=== PATIENT | male | born 1935 | race Caucasian/White ===

== ENCOUNTER 2017-04-26 12:42 | Day surgery (SDC) | payer OTHER ==
[~2017-04-26] VITALS: Ht 182.9 cm; Wt 109.8 kg
[~2017-04-26 12:42] MED LIST: ACCUPRIL; AMLO10 PO; AMLO5; AMLO5 PO; BENZ100A PO; EQL CALCIUM; EZET10; FENO145; GLIM2; HCTZ; HYDACE5 PO; HYDCHL12.5; HYDCHL25 PO; METO100ER; NAPR375 PO; NAPR500 PO; NORVASC; OSEL75CA PO; POTA10T; Pravachol20 MG; QUIN10 PO; SITA100T2; SPIHYD; Stool Soft50 MG/5 ML; WARF1; [UNRECOGNIZED DRUG - OTHER]
== END 2017-04-26 15:06 | disposition home or self-care (01) ==
LOC: ORSCSDS 12:42
PROVIDERS: Internal Medicine Gastroenterology
PROC: 0DBN8ZX Excision of Sigmoid Colon, Via Natural or Artificial Opening Endoscopic, Diagnostic (ICD-10-PCS; principal; 2017-04-26 13:45)
PROC: 0DBK8ZX Excision of Ascending Colon, Via Natural or Artificial Opening Endoscopic, Diagnostic (ICD-10-PCS; principal; 2017-04-26 13:45)
PROC: 0DBM8ZX Excision of Descending Colon, Via Natural or Artificial Opening Endoscopic, Diagnostic (ICD-10-PCS; principal; 2017-04-26 13:45)
DX: Z12.11 Encounter for screening for malignant neoplasm of colon (principal); Z86.010 Personal history of colon polyps; D12.2 Benign neoplasm of ascending colon; D12.4 Benign neoplasm of descending colon; K63.5 Polyp of colon; K57.30 Diverticulosis of large intestine without perforation or abscess without bleeding; E11.9 Type 2 diabetes mellitus without complications; I48.91 Unspecified atrial fibrillation; G47.33 Obstructive sleep apnea (adult) (pediatric); Z87.891 Personal history of nicotine dependence; Z79.01 Long term (current) use of anticoagulants; Z79.899 Other long term (current) drug therapy
CPT/HCPCS: 82947; 88305; J7120

== ENCOUNTER → 2017-06-27 | Outpatient (CLI) | payer OTHER | LOC: LAB SHORT 10:28 → PLD 10:28 | DX: D18.01 Hemangioma of skin and subcutaneous tissue (principal) | CPT/HCPCS: 88305 ==

== ENCOUNTER → 2019-12-30 | Outpatient (CLI) | payer OTHER | END | disposition home or self-care (01) | LOC: PLD 10:57 → LAB SHORT 10:57 | DX: D48.5 Neoplasm of uncertain behavior of skin (principal) | CPT/HCPCS: 88305 ==

== ENCOUNTER → 2020-02-19 | Outpatient (CLI) | payer OTHER | END | disposition home or self-care (01) | LOC: LAB SHORT 15:43 → PLD 15:43 | DX: L82.1 Other seborrheic keratosis (principal); L28.2 Other prurigo | CPT/HCPCS: 88305 ==

== ENCOUNTER → 2022-10-31 | Outpatient (CLI) | payer OTHER ==
[2022-10-31 15:14] LABS: BASOPHILS ABSOLUTE AUTO 0.07 K/mm3 (0.00-0.23); BASOPHILS PERCENT AUTO 1 % (0-2); EOSINOPHILS ABSOLUTE AUTO 0.21 K/mm3 (0.00-0.68); EOSINOPHILS PERCENT AUTO 3 % (0-6); Hematocrit 51.1 % (37.0-53.0); Hemoglobin 17.3 g/dL (13.5-17.5); IMMATURE GRAN ABSOLUTE AUTO 0.04 K/mm3 (0.00-0.10); IMMATURE GRAN PERCENT AUTO 1 % (0-1); LYMPHOCYTES ABSOLUTE AUTO 2.25 K/mm3 (0.84-5.20); LYMPHOCYTES PERCENT AUTO 26 % (21-46); MONOCYTES ABSOLUTE AUTO 0.72 K/mm3 (0.16-1.47); MONOCYTES PERCENT AUTO 8 % (4-13); Mean Corpuscular HGB 29.8 pg (26.0-34.0); Mean Corpuscular HGB Conc 33.9 g/dL (31.5-36.5); Mean Corpuscular Volume 88 fL (80-100); Mean Platelet Volume 12.4 fL (9.1-12.4); NEUTROPHILS ABSOLUTE AUTO 5.27 K/mm3 (1.96-9.15); NEUTROPHILS PERCENT AUTO 62 % (41-73); Platelet Count 144 K/mm3 (150-400); RDW Coefficient Variation 13.7 % (11.7-14.2); RDW Standard Deviation 43.8 fL (35.1-46.3); Red Blood Cell Count 5.81 M/mm3 (4.30-5.90); White Blood Cell Count 8.56 K/mm3 (4.00-11.30)
[2022-10-31 16:07] LABS: International Normalized Ratio 2.63; Prothrombin Time Results 26.1 Sec (9.7-11.5)
[2022-11-01 06:16] LABS: HEMOGLOBIN A1C 8.6 % (4.8-5.6)
== END ==
LOC: LAB 12:00 → LAB SHORT 12:00
PROVIDERS: Internal Medicine
DX: I12.9 Hypertensive chronic kidney disease with stage 1 through stage 4 chronic kidney disease, or unspecified chronic kidney disease (principal); E11.22 Type 2 diabetes mellitus with diabetic chronic kidney disease; N18.9 Chronic kidney disease, unspecified; I48.91 Unspecified atrial fibrillation
CPT/HCPCS: 83036; 83970; 85025; 85610

== ENCOUNTER → 2022-11-21 | Outpatient (CLI) | payer OTHER | LOC: LAB 13:55 | DX: I12.9 Hypertensive chronic kidney disease with stage 1 through stage 4 chronic kidney disease, or unspecified chronic kidney disease (principal); N18.9 Chronic kidney disease, unspecified; I48.91 Unspecified atrial fibrillation ==

== ENCOUNTER → 2022-12-21 | Outpatient (CLI) | payer OTHER ==
[2022-12-21 13:07] LABS: International Normalized Ratio 1.86; Prothrombin Time Results 18.9 Sec (9.7-11.5)
== END ==
LOC: LAB 11:39 → LAB SHORT 11:39
PROVIDERS: Internal Medicine
DX: I48.91 Unspecified atrial fibrillation (principal); D68.69 Other thrombophilia
CPT/HCPCS: 85610

== ENCOUNTER → 2023-12-02 | Outpatient (CLI) | payer OTHER ==
[2023-12-02 11:05] LABS: International Normalized Ratio 3.15
== END | disposition home or self-care (01) ==
LOC: LAB SHORT 10:41 → LAB 10:41
PROVIDERS: Internal Medicine
DX: I48.20 Chronic atrial fibrillation, unspecified (principal); D68.69 Other thrombophilia
CPT/HCPCS: 85610

== ENCOUNTER 2024-06-04 09:28 | Inpatient (IN) | payer OTHER ==
[~2024-06-04] VITALS: Ht 182.9 cm; Wt 110.0 kg
[~2024-06-04 09:28] MED LIST changes: -METO100ER; +METO100ER PO; -WARF1; +WARF5 PO
[2024-06-04] MEDS ORDERED: TRADJENTA5 MG PO ×2 (09:47→17:18)
[2024-06-04] MEDS ORDERED: AMLODIPINE BESYL5 MG PO (09:47)
[2024-06-04] MEDS ORDERED: DONEPEZIL HCL5 M2 PO (09:47)
[2024-06-04] MEDS ORDERED: Potassium Chlo20 ME1 PO (09:48)
[2024-06-04] MEDS ORDERED: TELMISARTAN80 MG PO (09:48)
[2024-06-04] MEDS ORDERED: ATORVASTATIN CA20 MG PO (09:48)
[2024-06-04 10:05] LABS: White Blood Cell Count 10.46 K/mm3 (4.00-11.30)
[2024-06-04 10:06] LABS: BASOPHILS ABSOLUTE AUTO 0.02 K/mm3 (0.00-0.23); BASOPHILS PERCENT AUTO 0 % (0-2); EOSINOPHILS PERCENT AUTO 0 % (0-6); Hematocrit 44.7 % (37.0-53.0); Hemoglobin 15.1 g/dL (13.5-17.5); IMMATURE GRAN ABSOLUTE AUTO 0.05 K/mm3 (0.00-0.10); IMMATURE GRAN PERCENT AUTO 1 % (0-1); LYMPHOCYTES ABSOLUTE AUTO 1.03 K/mm3 (0.84-5.20); LYMPHOCYTES PERCENT AUTO 10 % (21-46); MONOCYTES ABSOLUTE AUTO 1.14 K/mm3 (0.16-1.47); MONOCYTES PERCENT AUTO 11 % (4-13); Mean Corpuscular HGB 29.5 pg (26.0-34.0); Mean Corpuscular HGB Conc 33.8 g/dL (31.5-36.5); Mean Corpuscular Volume 88 fL (80-100); Mean Platelet Volume 11.9 fL (9.1-12.4); NEUTROPHILS ABSOLUTE AUTO 8.22 K/mm3 (1.96-9.15); NEUTROPHILS PERCENT AUTO 79 % (41-73); Platelet Count 125 K/mm3 (150-400); RDW Coefficient Variation 14.1 % (11.7-14.2); RDW Standard Deviation 45.3 fL (35.1-46.3); Red Blood Cell Count 5.11 M/mm3 (4.30-5.90)
[2024-06-04 11:10] LABS: International Normalized Ratio 1.69; Prothrombin Time Results 17.4 Sec (9.7-11.5)
[2024-06-04 11:25] LABS: CORONAVIRUS COVID-19 AG Negative (NEGATIVE); INFLUENZA A AG Negative (NEGATIVE); INFLUENZA B AG Negative (NEGATIVE)
[2024-06-04 11:33] LABS: Albumin, Blood 2.8 g/dL (3.4-5.0); Albumin/Globulin Ratio 0.7 (0.8-1.8); Bilirubin, Total 1.4 mg/dL (0.1-1.0); Calcium, Blood 8.8 mg/dL (8.5-10.1); Creatinine, Blood 1.05 mg/dL (0.60-1.20); Globulin, Blood 4.3 g/dL (2.2-4.0); Potassium, Blood 3.7 mmol/L (3.5-5.5); Total Protein, Blood 7.1 g/dL (6.4-8.2)
[2024-06-04] MEDS ORDERED: Ipratropium/Albuterol SulF 2.5-0.5MG/3 ML Amp INH ONE ×2 (11:40→22:00)
[2024-06-04] MEDS ORDERED: MethylPREDNISolone Sod Succ 125 MG Vial IV ONE (13:55)
[2024-06-04] MEDS ORDERED: CefTRIAXone Sodium 1,000 MG in NS 100 ML IV ONE (15:50)
[2024-06-04 15:57] LABS: Base Excess Venous 1.4 mmol/L; Bicarbonate Venous 25.7 mmol/L (24.0-30.0); PCO2 Venous 38.1 mmHg (38-42); pH Blood Venous 7.44 (7.34-7.37)
[2024-06-04] MEDS ORDERED: Azithromycin 500 MG in NS 250 ML IV ONE (16:10)
[2024-06-04] MEDS ORDERED: FLU VACC TS2024-25(6MOS UP)/PF 45 MCG/0.5 ML SYRINGE IM SCH (16:25)
[2024-06-04] MEDS ORDERED: NS 1,000 ML IV SCH ×2 (16:50→21:45)
[2024-06-04] MEDS ORDERED: WARF4 PO (17:16)
[2024-06-04] MEDS ORDERED: METF500 PO (17:18)
[2024-06-04 17:57] VITALS: BP 153/92
[2024-06-04] MEDS ORDERED: Warfarin Sodium 3 MG Tab PO ONE (18:40)
--- NOTE | 2024-06-04 18:54 | NUR ---
Admit/ End of shift note. Pt admitted into PCU2 from the ED this evening. Pt and family were oriented to the room and call light system. Pt has been on 2L nc to keep sats >92%. Pt was able to stand at the bedside to void and change out his clothing. Notable increase in his WOB and some complaints of feelings a little lightheaded. Once back in bed MD contacted to confirm IVF orders. MD told to give 500mL IVF then call back with status update to decide if more fluid is needed. Due to IV site and ABX currently infusing, bolus is taking longer to infuse. Pt has been instructed to keep arm straight to maintain IV infusion. Will pass on to accredited pharmacy technician to update MD. Pt is able to make needs known, call light is within reach. Daughter is currently at bedside.
[2024-06-04 19:44] VITALS: BP 139/84
[2024-06-04] MEDS ORDERED: Insulin Human Lispro 100 Units/ML 3ML Syringe SC SCH (21:00)
[2024-06-04] MEDS ORDERED: GuaiFENesin 600 MG TabCR PO SCH (21:00)
[2024-06-04 23:12] VITALS: BP 153/85
[2024-06-05] MEDS ORDERED: DEXTROMETHORPHAN/BENZOCAINE 1 EACH LOZENGE MT PRN (03:30)
[2024-06-05 03:52] VITALS: BP 149/90
[2024-06-05 04:24] LABS: Hematocrit 44.5 % (37.0-53.0); Hemoglobin 14.8 g/dL (13.5-17.5); Mean Corpuscular HGB 29.5 pg (26.0-34.0); Mean Corpuscular HGB Conc 33.3 g/dL (31.5-36.5); Mean Corpuscular Volume 89 fL (80-100); Mean Platelet Volume 12.1 fL (9.1-12.4); Platelet Count 121 K/mm3 (150-400); RDW Coefficient Variation 14.4 % (11.7-14.2); RDW Standard Deviation 46.4 fL (35.1-46.3); Red Blood Cell Count 5.02 M/mm3 (4.30-5.90); White Blood Cell Count 6.47 K/mm3 (4.00-11.30)
[2024-06-05 04:40] LABS: International Normalized Ratio 1.9; Prothrombin Time Results 19.4 Sec (9.7-11.5)
[2024-06-05 04:46] LABS: Albumin, Blood 2.6 g/dL (3.4-5.0); Albumin/Globulin Ratio 0.6 (0.8-1.8); Bilirubin, Total 0.8 mg/dL (0.1-1.0); Bun/Creatinine Ratio 26.9 (12.0-20.0); Calcium, Blood 9.6 mg/dL (8.5-10.1); Creatinine, Blood 0.93 mg/dL (0.60-1.20); Globulin, Blood 4.5 g/dL (2.2-4.0); Potassium, Blood 3.5 mmol/L (3.5-5.5); Total Protein, Blood 7.1 g/dL (6.4-8.2)
[2024-06-05 05:37] LABS: BAND PERCENT MAN 24 % (0-8); BASOPHILS PERCENT MAN 0 % (0-2); EOSINOPHILS PERCENT MAN 0 % (0-6); LYMPHOCYTES ABSOLUTE MAN 0.32 K/mm3 (0.84-5.20); LYMPHOCYTES PERCENT MAN 5 % (21-46); MONOCYTES ABSOLUTE MAN 0.38 K/mm3 (0.16-1.47); MONOCYTES PERCENT MAN 6 % (4-13); NEUTROPHILS ABSOLUTE MAN 5.75 K/mm3 (1.96-9.15); SEG NEUTROPHILS PERCENT MAN 65 % (41-73); TOTAL CELLS COUNTED 100
--- NOTE | 2024-06-05 06:36 | NUR ---
SHIFT SUMMARY: PT IS A&OX3, FORGETFUL AT TIMES. FREQUENTLY THINKS HE IS AT HOME WHEN HE WAKES UP. VSS ON 3L NC. AFIB in the 100'S. DENIES PAIN. TOLERATING A CONS CARB DIET. PT OPTED NOT TO LET THIS RN ADMINISTER INSULIN. HE STATES HE DOESN'T TAKE INSULIN AT HOME. TAKES PILLS WHOLE, ONE AT A TIME WITH FLUIDS. VOIDING SMALL AMOUNTS OF CONCENTRATED MALODOROUS URINE IN URINAL. NO BM THIS SHIFT. BED IN LOWEST POSITION, CALL LIGHT WITHIN REACH. BED ALARM SET FOR PT'S SAFETY.
[2024-06-05 07:50] VITALS: BP 161/95
[2024-06-05] MEDS ORDERED: Donepezil HCl 5 MG Tab PO SCH (09:00)
[2024-06-05] MEDS ORDERED: Azithromycin 500 MG in NS 250 ML IV SCH (09:00)
[2024-06-05] MEDS ORDERED: CefTRIAXone Sodium 1,000 MG in NS 100 ML IV SCH (09:00)
[2024-06-05] MEDS ORDERED: Metoprolol Succinate 25 MG TABCR PO SCH (09:00)
[2024-06-05] MEDS ORDERED: Atorvastatin 10 MG Tab PO SCH (09:00)
[2024-06-05 09:46] VITALS: BP 146/93
[2024-06-05] MEDS ORDERED: Furosemide 10 MG / ML 2ML Vial IV ONE (10:20)
[2024-06-05 11:52] VITALS: BP 151/104
[2024-06-05 16:10] VITALS: BP 157/93
--- NOTE | 2024-06-05 17:14 | NUR ---
End of shift note. Pt s respiratory status has been struggling this shift. Repeat chest xray was completed this AM. 1 time dose of lasix was given with moderate effect. Pt has required 5L simple mask to maintain sats >92%. Cough continues to be wet but non productive. Respiratory rate high 20s-30s. Pt has overall been very fatigued all shift. He will have periods when he wakes a little bit more and will talk with family and staff. Staff held morning meds but was able to give some meds when he was more alert after lunch. Pt is able to make needs known, call light is within reach. Bed alarm is active.
[2024-06-05] MEDS ORDERED: Warfarin Sodium 3 MG Tab PO SCH (18:00)
--- NOTE | 2024-06-05 18:19 | NUR ---
Bedside report transfer of care at 1730. Pt awakens to conversation, but is lethargic and falls back to sleep readily. Able to follow directions. Tachypneic, very coarse lung sounds throughout and very weak moist cough without being able to expectorate any phlegm. RR 32/min. Requiring 4-5 l/min of O2 at this time. Encouraged him to deep breathe and cough which he did, but he was too sleepy to appreciate education on use of incentive spirometer which I had just given to him. Appears to be very weak. Atrial fibrillation by telemetry noted, rate 98bpm. Daughter at bedside.
--- NOTE | 2024-06-05 18:55 | NUR ---
PT awake encough to take oral medication. Daughter in room states that the pt had a "coughing fit" and she had to raise up the bed. Pt was encouraged not to hold back and to cough as needed.
[2024-06-05 19:49] VITALS: BP 134/79
[2024-06-06] VITALS (9 sets, daily range): BP systolic 130–180; BP diastolic 86–128
--- NOTE | 2024-06-06 02:57 | NUR ---
CARE NOTE RESIDENT GOLF CART MECHANIC NOTIFIED AT 0210 OT PT'S ELEVATED BP OF 180/113(130). STATES THAT SHE WILL PLACE ORDERS.WILL CONTINUE TO MONITOR PT.
[2024-06-06 04:15] LABS: BASOPHILS ABSOLUTE AUTO 0.02 K/mm3 (0.00-0.23); BASOPHILS PERCENT AUTO 0 % (0-2); EOSINOPHILS PERCENT AUTO 0 % (0-6); Hematocrit 46.4 % (37.0-53.0); Hemoglobin 15.3 g/dL (13.5-17.5); IMMATURE GRAN ABSOLUTE AUTO 0.05 K/mm3 (0.00-0.10); IMMATURE GRAN PERCENT AUTO 1 % (0-1); LYMPHOCYTES ABSOLUTE AUTO 1.32 K/mm3 (0.84-5.20); LYMPHOCYTES PERCENT AUTO 18 % (21-46); MONOCYTES ABSOLUTE AUTO 0.86 K/mm3 (0.16-1.47); MONOCYTES PERCENT AUTO 12 % (4-13); Mean Corpuscular HGB 29.9 pg (26.0-34.0); Mean Corpuscular Volume 91 fL (80-100); Mean Platelet Volume 11.8 fL (9.1-12.4); NEUTROPHILS ABSOLUTE AUTO 5.01 K/mm3 (1.96-9.15); NEUTROPHILS PERCENT AUTO 69 % (41-73); Platelet Count 138 K/mm3 (150-400); RDW Coefficient Variation 14.4 % (11.7-14.2); Red Blood Cell Count 5.11 M/mm3 (4.30-5.90); White Blood Cell Count 7.26 K/mm3 (4.00-11.30)
[2024-06-06 04:36] LABS: International Normalized Ratio 2.5
[2024-06-06 04:40] LABS: Albumin, Blood 2.3 g/dL (3.4-5.0); Albumin/Globulin Ratio 0.5 (0.8-1.8); Bilirubin, Total 0.7 mg/dL (0.1-1.0); Bun/Creatinine Ratio 31.8 (12.0-20.0); Creatinine, Blood 0.88 mg/dL (0.60-1.20); Globulin, Blood 4.4 g/dL (2.2-4.0); Total Protein, Blood 6.7 g/dL (6.4-8.2)
--- NOTE | 2024-06-06 07:00 | NUR ---
SHIFT SUMMARY PT HAS BEEN SLEEPING MOST OF THE NIGHT.PT OCCASIONALLY TOOK OF THE OXIMASK AND HIS OXYGEN SATURATION WOULD DROP DOWN TO 86%.PT REMINDED MULTIPLE TIMES TO KEEP THE MASK ON.NO C/O PAIN/DISCOMFORT REPORTED BY PT.PT HAD ELEVATED BP'S NOTED IN PREVIOUS NOTE.WILL PASS REPORT TO DAYSHIFT NURSE.CALL LIGHT AND PT'S ITEMS WITHIN REACH,
--- NOTE | 2024-06-06 07:45 | NUR ---
Pt has been occasionally pulling off his oxygen mask while sleeping. spo2 drops to 86% when on room air, quickly recovers once the oxygen mask is replaced.
[2024-06-06] MEDS ORDERED: AmLODIPine Besylate 5 MG Tab PO SCH (09:00)
[2024-06-06] MEDS ORDERED: HydroCHLOROthiazide 25 mg Tab PO SCH (09:00)
[2024-06-06] MEDS ORDERED: Warfarin Sodium 4 MG Tab PO SCH (18:00)
[2024-06-07 04:13] VITALS: BP 154/97
[2024-06-07 04:26] LABS: BASOPHILS ABSOLUTE AUTO 0.07 K/mm3 (0.00-0.23); BASOPHILS PERCENT AUTO 1 % (0-2); EOSINOPHILS ABSOLUTE AUTO 0.04 K/mm3 (0.00-0.68); EOSINOPHILS PERCENT AUTO 1 % (0-6); Hematocrit 47.7 % (37.0-53.0); Hemoglobin 15.4 g/dL (13.5-17.5); IMMATURE GRAN ABSOLUTE AUTO 0.17 K/mm3 (0.00-0.10); IMMATURE GRAN PERCENT AUTO 2 % (0-1); LYMPHOCYTES ABSOLUTE AUTO 1.38 K/mm3 (0.84-5.20); LYMPHOCYTES PERCENT AUTO 16 % (21-46); MONOCYTES ABSOLUTE AUTO 0.85 K/mm3 (0.16-1.47); MONOCYTES PERCENT AUTO 10 % (4-13); Mean Corpuscular HGB 29.1 pg (26.0-34.0); Mean Corpuscular HGB Conc 32.3 g/dL (31.5-36.5); Mean Corpuscular Volume 90 fL (80-100); Mean Platelet Volume 11.5 fL (9.1-12.4); NEUTROPHILS ABSOLUTE AUTO 5.92 K/mm3 (1.96-9.15); NEUTROPHILS PERCENT AUTO 70 % (41-73); Platelet Count 155 K/mm3 (150-400); RDW Coefficient Variation 14.2 % (11.7-14.2); RDW Standard Deviation 47.5 fL (35.1-46.3); Red Blood Cell Count 5.29 M/mm3 (4.30-5.90); White Blood Cell Count 8.43 K/mm3 (4.00-11.30)
[2024-06-07 04:54] LABS: Albumin, Blood 2.6 g/dL (3.4-5.0); Albumin/Globulin Ratio 0.6 (0.8-1.8); Bilirubin, Total 0.7 mg/dL (0.1-1.0); Bun/Creatinine Ratio 30.2 (12.0-20.0); Calcium, Blood 9.3 mg/dL (8.5-10.1); Creatinine, Blood 0.86 mg/dL (0.60-1.20); Globulin, Blood 4.2 g/dL (2.2-4.0); Potassium, Blood 3.4 mmol/L (3.5-5.5); Total Protein, Blood 6.8 g/dL (6.4-8.2)
[2024-06-07 04:56] LABS: Prothrombin Time Results 39.8 Sec (9.7-11.5)
[2024-06-07 05:16] LABS: International Normalized Ratio 4.13
--- NOTE | 2024-06-07 06:33 | NUR ---
SHIFT SUMMARY PT HAS BEEN SLEEPING MOST OF THE NIGHT.OXYGEN SATURATION >91% ON 2L VIA MASK.PT OCCASIONALLY TOOK OFF THE MASK AND HIS OXYGEN SATURATION WOULD DROP DOWN TO 86%.NO C/O PAIN/DISCOMFORT THROUGHOUT THE NIGHT.PT DENIES PAIN/DISCOMFORT THIS MORNING.CALL LIGHT AND PT'S ITEMS WITHIN REACH.WILL GIVE REPORT TO DAYSHIFT NURSE.
[2024-06-07 07:32] VITALS: BP 159/96
[2024-06-07] MEDS ORDERED: Potassium Chloride 20 MEQ TabCR PO ONE (10:00)
[2024-06-07] MEDS ORDERED: Metoprolol Succinate 25 MG TABCR PO ONE (11:00)
[2024-06-07 11:11] VITALS: BP 163/97
[2024-06-07] MEDS ORDERED: Ipratropium/Albuterol SulF 2.5-0.5MG/3 ML Amp INH SCH (12:00)
[2024-06-07] MEDS ORDERED: MethylPREDNISolone Sod Succ 125 MG Vial IV SCH (13:00)
[2024-06-07 13:39] LABS: Base Excess Venous 9.7 mmol/L; Bicarbonate Venous 32.2 mmol/L (24.0-30.0); PCO2 Venous 44.2 mmHg (38-42); pH Blood Venous 7.48 (7.34-7.37)
[2024-06-07] MEDS ORDERED: Piperacillin/Tazobactam Sod 4.5 GM in NS 100 ML IV SCH (14:00)
[2024-06-07 15:12] VITALS: BP 157/96
[2024-06-07] MEDS ORDERED: Furosemide 10 MG / ML 2ML Vial IV SCH (17:00)
--- NOTE | 2024-06-07 17:04 | NUR ---
SHIFT SUMMARY: PT ALERT, ORIENTED X3, ABLE TO FOLLOW COMMANDS AND MAKE NEEDS KNOWN. FORGETFUL AT TIMES. BED ALARM ON FOR SAFETY. BP AND HR STABLE. AFEBRILE. SPO2 >96% ON ROOM AIR. LUNG SOUNDS REMAIN COARSE WITH WHEEZE. ABD SOFT, MILDLY DISTENDED, BOWEL SOUNDS +. PUREWICK IN PLACE, NO BM THIS SHIFT. FAMILY AT BEDSIDE THROUGHOUT THE DAY, UPDATED FREQUENTLY ON PT PLACE OF CARE. BED IN LOW, CALL LIGHT IN REACH, WILL REPORT TO ONCOMING RN.
--- NOTE | 2024-06-07 19:53 | NUR ---
CB 398. NOTIFIED DR. DUTTA. DR. DUTTA INFORMED THAT HE WOULD SWITCH PT HUMALOG TO HIGH SLIDING SCALE. AWAITING ORDER PLACEMENT.
[2024-06-07] MEDS ORDERED: Insulin Regular 100 UNIT/ML 10ML Vial SC SCH (20:00)
[2024-06-07 20:19] VITALS: BP 148/95
[2024-06-07 23:48] VITALS: BP 148/101
--- NOTE | 2024-06-08 00:04 | NUR ---
SPOKE WITH DR. DUTTA. CHECKED CBG WHICH CAME BACK AT 323. DOWN FROM PREVIOUS OF 398. SHORTLY AFTER ADMINISTERED SCHEDULED IV SOLUMEDROL. INQUIRED ABOUT STARTING LONG ACTING INSULIN FOR PATIENT. DR. DUTTA INFORMED THAT WE WILL STICK WITH HUMULIN FOR NOW AND HE WOULD LIKE NOTIFIED WHEN BLOOD SUGAR HITS 200. NOTED.
[2024-06-08 04:17] VITALS: BP 158/97
--- NOTE | 2024-06-08 04:27 | NUR ---
SHIFT SUMMARY. SHIFT HAS GONE WELL OVERALL. PT WAS ABLE TO ANSWER ORIENTATION QUESTIONS APPROPRIATELY ON SHIFT ASSESMENT BUT EVEN AT THE TIME WAS SOMEWHAT POOR HISTORIAN AND FORGETFUL. SHIFT HAS GONE ONE, PT HAS BECOME MORE CONFUSED AND AWAKES SOMEWHAT DISORIENTED. EARLY IN SHIFT, PT PULLED OUT 2 IVs, PULLED OFF PUREWICK, ETC. HAS REMAINED COOPERATIVE WITH CARE AND AGREEABLE WITH REDIRECTION THROUGHOUT SHIFT. AT TIMES AWAKES REPORTING "NEEDING TO GET OFF ON THE NEXT STOP" AND BELIEVING HE IS ON A TRAIN BEFORE BEING EDUCATED ON ADMISSION STATUS. OTHERWISE SHIFT HAS GONE WELL OVERALL. PT WORE BIPAP VERY BRIEFLY EARLY THIS MORNING BUT WAS UNABLE TO TOLERATE AND TOOK IT OFF AFTER BRIEF PERIOD. DESPITE THIS, HAS MAINTAINED ADEQUATE SATURATION ON ROOM AIR THROUGHOUT SHIFT WITH SATURATION ABOVE 90% MOST OF THE TIME WITH SPORADIC DESATURATIONS LOW 87-88%. VITALS OTHERWISE STABLE. PT HAS DENIED PAIN THROUGHOUT SHIFT. BLOOD SUGAR HAS BEEN TRENDING DOWN THROUGHOUT SHIFT. SEE RELATED NOTE FOR DETAILS. BED LOCKED IN LOWEST POSITION. CALL LIGHT LEFT WITHIN REACH. CONTINUING TO MONITOR.
[2024-06-08 04:58] LABS: Base Excess Venous 12.4 mmol/L; Bicarbonate Venous 34.5 mmol/L (24.0-30.0); PCO2 Venous 41.6 mmHg (38-42); pH Blood Venous 7.53 (7.34-7.37)
[2024-06-08 06:07] LABS: Hematocrit 46.4 % (37.0-53.0); Hemoglobin 15.4 g/dL (13.5-17.5); Mean Corpuscular HGB 29.3 pg (26.0-34.0); Mean Corpuscular HGB Conc 33.2 g/dL (31.5-36.5); Mean Corpuscular Volume 88 fL (80-100); Mean Platelet Volume 11.9 fL (9.1-12.4); Platelet Count 190 K/mm3 (150-400); RDW Coefficient Variation 13.9 % (11.7-14.2); RDW Standard Deviation 44.7 fL (35.1-46.3); Red Blood Cell Count 5.26 M/mm3 (4.30-5.90); White Blood Cell Count 9.74 K/mm3 (4.00-11.30)
[2024-06-08 06:20] LABS: International Normalized Ratio 3.64; Prothrombin Time Results 35.4 Sec (9.7-11.5)
[2024-06-08 06:27] LABS: BAND PERCENT MAN 3 % (0-8); BASOPHILS PERCENT MAN 0 % (0-2); EOSINOPHILS PERCENT MAN 0 % (0-6); LYMPHOCYTES ABSOLUTE MAN 0.58 K/mm3 (0.84-5.20); LYMPHOCYTES PERCENT MAN 6 % (21-46); METAMYELOCYTE ABSOLUTE MAN 0.09 K/mm3 (0.00-0.00); METAMYELOCYTE PERCENT MAN 1 % (0-0); MONOCYTES ABSOLUTE MAN 0.19 K/mm3 (0.16-1.47); MONOCYTES PERCENT MAN 2 % (4-13); MYELOCYTE ABSOLUTE MAN 0.68 K/mm3 (0.00-0.00); MYELOCYTE PERCENT MAN 7 % (0-0); NEUTROPHILS ABSOLUTE MAN 8.18 K/mm3 (1.96-9.15); SEG NEUTROPHILS PERCENT MAN 81 % (41-73); TOTAL CELLS COUNTED 100
[2024-06-08 06:36] LABS: Albumin, Blood 2.6 g/dL (3.4-5.0); Albumin/Globulin Ratio 0.6 (0.8-1.8); Bilirubin, Total 0.8 mg/dL (0.1-1.0); Bun/Creatinine Ratio 26.9 (12.0-20.0); Calcium, Blood 9.6 mg/dL (8.5-10.1); Creatinine, Blood 0.82 mg/dL (0.60-1.20); Globulin, Blood 4.4 g/dL (2.2-4.0); Potassium, Blood 3.8 mmol/L (3.5-5.5)
[2024-06-08 07:49] VITALS: BP 143/81
[2024-06-08] MEDS ORDERED: Metoprolol Succinate 50 MG TABCR PO SCH (09:00)
[2024-06-08 11:16] VITALS: BP 152/87
[2024-06-08] MEDS ORDERED: Insulin Regular 100 UNIT/ML 10ML Vial SC SCH ×2 (12:25→18:00)
[2024-06-08 15:37] VITALS: BP 132/81
[2024-06-08 16:38] LABS: Base Excess Venous 10.8 mmol/L; PCO2 Venous 35.3 mmHg (38-42)
[2024-06-08 16:39] LABS: pH Blood Venous 7.58 (7.34-7.37)
[2024-06-08] MEDS ORDERED: AcetaZOLAMIDE Sodium 500 MG Vial IV ONE (16:45)
[2024-06-08 17:03] LABS: Bun/Creatinine Ratio 31.4 (12.0-20.0); Calcium, Blood 9.5 mg/dL (8.5-10.1); Creatinine, Blood 0.93 mg/dL (0.60-1.20); Potassium, Blood 3.7 mmol/L (3.5-5.5)
--- NOTE | 2024-06-08 17:06 | NUR ---
SHIFT NOTE: PT REMAINS A/OX4 T/O SHIFT. HE REMAINS IN AFIB WITH RATES IN THE LOW 100S. HE TACHS UP WITH EXERTION. HE IS A 1P ASSIST TO THE CHAIR. HE IS ON ROOM AIR WITH SPO2 >90%. HE REPORTS SHORTNESS OF BREATH AND HAS LABORED BREATHING. RT REPORTED TO THIS RN A PH OF 7.58, DR TUCKER NOTIFIED. PUREWICK SET UP TO SUCTION DRAINING YELLOW URINE. PT ABLE TO EXPRESS NEEDS, CALL LIGHT IN REACH.
[2024-06-08 20:50] VITALS: BP 140/96
[2024-06-08 23:57] VITALS: BP 144/90
--- NOTE | 2024-06-09 00:24 | NUR ---
0000 CBG 361. CALLED TO NOTIFY DR. DUTTA. DIRECTED TO GIVE 0000 HUMULIN AND CHECK CBG IN 1 HOUR AND CALL WITH RESULTS. NOTED.
--- NOTE | 2024-06-09 01:12 | NUR ---
SPOKE WITH DR. DUTTA REGARDING [address] DUTTA DIRECTED TO CHECK CBG AGAIN AT 0500 AND CALL IF IT IS STILL ABOVE 300. NOTED.
[2024-06-09 03:37] VITALS: BP 156/101
[2024-06-09 03:55] LABS: Base Excess Venous 5.4 mmol/L; PCO2 Venous 38.5 mmHg (38-42); pH Blood Venous 7.48 (7.34-7.37)
--- NOTE | 2024-06-09 04:23 | NUR ---
SHIFT SUMMARY. SHIFT HAS GONE WELL OVERALL. PT HAS HAD LESS DRAMATIC FLUCTUATIONS IN MENTATION THAN PREVIOUS SHIFT WITH THIS RN. HAS REMAINED ABLE TO ANSWER MOST ORIENTATION QUESTIONS THROUGHOUT SHIFT, HAS BEEN LESS IMPULSIVE, HAS BEEN LESS DISORIENTED UPON WAKING. HAS BEEN ABLE TO REST FOR LONGER PERIODS OF TIME THAN PREVIOUS SHIFT WITH THIS RN. HAS BEEN RUNNING AFIB THROUGHOUT SHIFT, RATE SETTLING IN THE 90s-100s RANGE. MAINTAINS ADEQUATE SATURATION ON ROOM AIR WHILE AWAKE, HAS BEEN PUT ON 2 L O2 WHILE SLEEPING TO MAINTAIN SATURATION PT DECLINES BEDSIDE CPAP. SHIFT OTHERWISE UNREMARKABLE. BED LOCKED IN LOWEST POSITION. CALL LIGHT LEFT WITHIN REACH. CONTINUING TO MONITOR.
[2024-06-09 04:28] LABS: BASOPHILS PERCENT AUTO 1 % (0-2); EOSINOPHILS PERCENT AUTO 0 % (0-6); Hematocrit 47.2 % (37.0-53.0); Hemoglobin 15.5 g/dL (13.5-17.5); IMMATURE GRAN ABSOLUTE AUTO 0.86 K/mm3 (0.00-0.10); IMMATURE GRAN PERCENT AUTO 6 % (0-1); LYMPHOCYTES PERCENT AUTO 7 % (21-46); MONOCYTES ABSOLUTE AUTO 0.95 K/mm3 (0.16-1.47); MONOCYTES PERCENT AUTO 6 % (4-13); Mean Corpuscular HGB 29.1 pg (26.0-34.0); Mean Corpuscular HGB Conc 32.8 g/dL (31.5-36.5); Mean Corpuscular Volume 89 fL (80-100); Mean Platelet Volume 11.5 fL (9.1-12.4); NEUTROPHILS ABSOLUTE AUTO 12.31 K/mm3 (1.96-9.15); NEUTROPHILS PERCENT AUTO 80 % (41-73); Platelet Count 225 K/mm3 (150-400); RDW Standard Deviation 45.1 fL (35.1-46.3); Red Blood Cell Count 5.32 M/mm3 (4.30-5.90); White Blood Cell Count 15.32 K/mm3 (4.00-11.30)
[2024-06-09 04:44] LABS: International Normalized Ratio 2.87; Prothrombin Time Results 28.4 Sec (9.7-11.5)
[2024-06-09 05:03] LABS: Albumin, Blood 2.7 g/dL (3.4-5.0); Albumin/Globulin Ratio 0.6 (0.8-1.8); Bilirubin, Total 0.5 mg/dL (0.1-1.0); Bun/Creatinine Ratio 28.2 (12.0-20.0); Calcium, Blood 9.8 mg/dL (8.5-10.1); Creatinine, Blood 1.03 mg/dL (0.60-1.20); Globulin, Blood 4.2 g/dL (2.2-4.0); Potassium, Blood 3.4 mmol/L (3.5-5.5); Total Protein, Blood 6.9 g/dL (6.4-8.2)
[2024-06-09 08:07] VITALS: BP 135/86
[2024-06-09 12:28] VITALS: BP 121/55
[2024-06-09 15:18] VITALS: BP 134/80
--- NOTE | 2024-06-09 16:44 | NUR ---
SHIFT SUMMARY PT HAS BEEN SOMNOLENT DURING SHIFT, HE WAKES EASILY TO VERBAL STIMULI AND IS ORIENTED TO SELF, PLACE, SITUATION AND MONTH/YEAR. HE ANSWERS QUESTIONS APPROPRIATELY. BP STABLE, PER TELE MONITORING, HR HAS BEEN AFIB 90-110'S. SPO2 MAINTAINED >95% VIA 2L NC. HE HAS DECLINED TO WEAR BIPAP AND REFUSAL FORM IS IN CHART. HE HAS DENIED FEELINGS OF CHEST PAIN/PRESSURE DURING SHIFT WELL NAUSEA/VOMITTING, HE DENIES FEELING LIGHTHEADED/DIZZY. OCCASIONAL DRY COUGH NOTED. HE HAS BEEN A 1 PERSON ASSIST TO CHAIR DURING SHIFT. PW DEVICE IS IN PLACE AND CONNECTED APPROPRIATELY TO SUCTION. HIS 2 SONS HAVE BEEN AT BEDSIDE DURING SHIFT. PLEASE REVIEW LABS FOR ELEVATED CBG'S AND [facility] FOR APPROPRIATE/ORDERED INSULIN COVERAGE. CALL LIGHT IS W/IN REACH.
[2024-06-09] MEDS ORDERED: Warfarin Sodium 3 MG Tab PO ONE (18:00)
--- NOTE | 2024-06-09 18:19 | NUR ---
CARE NOTE PT CANNOT MAINTAIN WAKEFULNESS THIS EVENING THEREFORE DINNER TRAY PLACED IN PANTRY. HE WAKES TO VERBAL STIMULI AND FOLLOWS COMMANDS BUT FALLS BACK ASLEEP EASILY. CALL LIGHT IS W/IN REACH, BED ALARM ON.
[2024-06-09 20:40] VITALS: BP 136/97
[2024-06-09] MEDS ORDERED: Piperacillin/Tazobactam Sod 4.5 GM ONE (21:27)
[2024-06-09] MEDS ORDERED: Insulin Regular 100 UNIT/ML 10ML Vial SC SCH (22:00)
[2024-06-10 00:11] VITALS: BP 139/95
[2024-06-10 02:18] LABS: Hematocrit 48.6 % (37.0-53.0); Hemoglobin 15.8 g/dL (13.5-17.5); Mean Corpuscular HGB 29.3 pg (26.0-34.0); Mean Corpuscular HGB Conc 32.5 g/dL (31.5-36.5); Mean Corpuscular Volume 90 fL (80-100); Mean Platelet Volume 11.3 fL (9.1-12.4); Platelet Count 233 K/mm3 (150-400); RDW Coefficient Variation 14.2 % (11.7-14.2); RDW Standard Deviation 46.9 fL (35.1-46.3); White Blood Cell Count 15.66 K/mm3 (4.00-11.30)
[2024-06-10 02:35] LABS: International Normalized Ratio 2.44; Prothrombin Time Results 24.4 Sec (9.7-11.5)
[2024-06-10 02:36] LABS: Albumin, Blood 2.7 g/dL (3.4-5.0); Albumin/Globulin Ratio 0.7 (0.8-1.8); BAND PERCENT MAN 3 % (0-8); BASOPHILS PERCENT MAN 0 % (0-2); Bilirubin, Total 0.5 mg/dL (0.1-1.0); Bun/Creatinine Ratio 35.5 (12.0-20.0); Calcium, Blood 9.9 mg/dL (8.5-10.1); Creatinine, Blood 1.07 mg/dL (0.60-1.20); EOSINOPHILS PERCENT MAN 0 % (0-6); LYMPHOCYTES ABSOLUTE MAN 0.93 K/mm3 (0.84-5.20); LYMPHOCYTES PERCENT MAN 6 % (21-46); METAMYELOCYTE ABSOLUTE MAN 0.31 K/mm3 (0.00-0.00); METAMYELOCYTE PERCENT MAN 2 % (0-0); MONOCYTES ABSOLUTE MAN 0.78 K/mm3 (0.16-1.47); MONOCYTES PERCENT MAN 5 % (4-13); MYELOCYTE ABSOLUTE MAN 0.31 K/mm3 (0.00-0.00); MYELOCYTE PERCENT MAN 2 % (0-0); NEUTROPHILS ABSOLUTE MAN 13.31 K/mm3 (1.96-9.15); Potassium, Blood 3.7 mmol/L (3.5-5.5); SEG NEUTROPHILS PERCENT MAN 82 % (41-73); TOTAL CELLS COUNTED 100; Total Protein, Blood 6.7 g/dL (6.4-8.2)
[2024-06-10 05:27] VITALS: BP 151/100
--- NOTE | 2024-06-10 06:12 | NUR ---
NOC SHIFT SUMMARY MAEGAN SLEPT WELL T/O THE NIGHT. AWAKENS EASILY TO VOICE. ORIENTED X4. VSS ON 2L VIA NC. REFUSED CPAP AND REFUSAL FORM ON FILE. DENIES PAIN. AFIB WITH RATES IN THE 80S-110S ON TELEMETRY. PLEASANT AND COOPEARTIVE. MALE PUREWICK IN PLACE, GOOD SEAL WITH ADEQUATE UOP. SWALLOW PRECAUTIONS IN ROOM ON BOARD. ATE DINNER AT START OF SHIFT INDEPENDENTLY AFTER SETUP.
--- NOTE | 2024-06-10 08:25 | NUR ---
INITIAL ASSESSMENT: Patient is awake sitting up in the recliner after breakfast. He is alert and oriented x4, some generalized weakness noted. He denies pain at this time. He is in A-Fib in the 90s to low 100s. LS DIM T/O with some coarseness noted in the upper lobes, his biox is 90% on 2L NC.BT+. He has a male purewick in place draining clear yellow urine. VSS. AM meds given whole with applesauce. Son at the bedside. Patient denies other needs at this time. Call light in reach.
[2024-06-10 11:35] VITALS: BP 120/81
[2024-06-10] MEDS ORDERED: NS 500 ML IV SCH (16:15)
[2024-06-10] MEDS ORDERED: NS 500 ML IV ONE (16:25)
--- NOTE | 2024-06-10 17:21 | NUR ---
Summary: Patient has been alert and oriented x4, T/O the shift. He was up in the chair for the majority of the shift. He has been in A-Fib with a rate in the 90s to low 100s, blood pressure stable. LS DIM T/O, he has been in the low 90s with 2L O2 via NC. BT+. Male purewick in place, draining clear yellow urine. Patient has been tolerating diet well no issues swallowing, pills whole with applesauce. Patient's blood sugars have been climbing T/O the day. This AM it was in the 200s, this evening it has gotten as high as 438, 15 units of insulin was given. 500 NS bolus given. Patient is currently NPO, due to have CBG checked at 1800-results will be reported to MD. Patient is currently resting at this time. Call light in reach.
[2024-06-10] MEDS ORDERED: Warfarin Sodium 5 MG Tab PO SCH (18:00)
[2024-06-10 20:50] VITALS: BP 143/98
[2024-06-10] MEDS ORDERED: Insulin Glargine-Yfgn 100 Unit/mL 3 ML SYR SC SCH (21:00)
[2024-06-11 04:40] VITALS: BP 95/71
[2024-06-11 04:40] LABS: Hematocrit 50.3 % (37.0-53.0); Hemoglobin 16.6 g/dL (13.5-17.5); Mean Corpuscular HGB 29.3 pg (26.0-34.0); Mean Corpuscular Volume 89 fL (80-100); Mean Platelet Volume 11.6 fL (9.1-12.4); Platelet Count 215 K/mm3 (150-400); RDW Standard Deviation 45.6 fL (35.1-46.3); Red Blood Cell Count 5.67 M/mm3 (4.30-5.90); White Blood Cell Count 15.59 K/mm3 (4.00-11.30)
[2024-06-11 04:53] LABS: International Normalized Ratio 2.07
[2024-06-11 05:17] LABS: BAND PERCENT MAN 3 % (0-8); BASOPHILS PERCENT MAN 0 % (0-2); EOSINOPHILS PERCENT MAN 0 % (0-6); LYMPHOCYTES ABSOLUTE MAN 1.55 K/mm3 (0.84-5.20); LYMPHOCYTES PERCENT MAN 10 % (21-46); MONOCYTES ABSOLUTE MAN 1.55 K/mm3 (0.16-1.47); MONOCYTES PERCENT MAN 10 % (4-13); MYELOCYTE ABSOLUTE MAN 0.46 K/mm3 (0.00-0.00); MYELOCYTE PERCENT MAN 3 % (0-0); SEG NEUTROPHILS PERCENT MAN 74 % (41-73); TOTAL CELLS COUNTED 100
[2024-06-11 05:18] LABS: Albumin, Blood 2.7 g/dL (3.4-5.0); Albumin/Globulin Ratio 0.6 (0.8-1.8); Bilirubin, Total 0.7 mg/dL (0.1-1.0); Bun/Creatinine Ratio 36.9 (12.0-20.0); Calcium, Blood 9.4 mg/dL (8.5-10.1); Creatinine, Blood 1.11 mg/dL (0.60-1.20); Globulin, Blood 4.2 g/dL (2.2-4.0); Potassium, Blood 3.8 mmol/L (3.5-5.5); Total Protein, Blood 6.9 g/dL (6.4-8.2)
[2024-06-11 07:58] VITALS: BP 129/90
[2024-06-11 11:22] VITALS: BP 121/85
--- NOTE | 2024-06-11 11:43 | NUR ---
AM NOTE: PATIENT ALERT AND ORIENTED X4. ABLE TO MAKE NEEDS KNOWN. 1 PERSON ASSIST. HARD OF HEARING. TELE SHOWING AFIB WITH HR 100-110'S. SBP 120'S. DENIES CHEST PAIN/PRESSURE/PALPITATIONS. NO EDMEMA NOTED. ON ROOM AIR SATING 90-91%. PLAN FOR HOME O2 EVAL TODAY. EVEN AND UNLABORED RESPIRATIONS. COARSE LUNG SOUNDS. OCCASIONAL MOIST COUGH. BOWEL TONES PRESENT. TOLERATING PO DIET. PUREWICK IN PLACE. UP TO RECLINER FOR MEALS. SON AT BEDSIDE THIS AM. DENIES NEEDS AT THIS TIME. CALL LIGHT IN REACH.
--- NOTE | 2024-06-11 11:47 | NUR ---
PATIENT AFTERNOON BLOOD SUGAR 286. THIS RN CALLED DR. LOPEZ TO CONFIRM INSULIN ORDERS. ORDERS TO GIVE INSULIN PER HIGH SLIDING SCALE.
[2024-06-11] MEDS ORDERED: GUAIFENESIN ER600 MG PO (13:45)
[2024-06-11] MEDS ORDERED: INSULIN GL100 UNIT/2 SC (13:46)
[2024-06-11] MEDS ORDERED: VISBIOME 112.51 EACH PO (13:47)
[2024-06-11] MEDS ORDERED: AMOCLA875 PO (13:47)
--- NOTE | 2024-06-11 14:45 | NUR ---
DISCHARGE: NICHOLAS LEBLNAC AT BEDSIDE FOR DISCHARGE TEACHING. THIS RN PROVIDED EDUCATION REGARDING MEDICATIONS TO STOP, NEW MEDICATIONS, BLOOD PRESSURE PARAMETERS WITH MEDICATIONS, INSULIN PEN ADMINISTRATION, SIGNS AND SYMPTOMS OF WHEN TO RETURN, HARD SCRIPTS FOR INSULIN PEN AND GLUCOMETER SUPPLIES, FOLLOW UP APPOINTMENTS AND IMPORTANCE OF WEARING CPAP WHEN SLEEPING. IV REMOVED. PATIENT LEFT UNIT WITH ALL PERSONAL BELONGINGS VIA WHEELCHAIR.
[2024-06-11] MEDS ORDERED: Warfarin Sodium 5 MG Tab PO SCH (18:00)
== END 2024-06-11 14:43 | disposition home health service (06) | DRG 193 ==
LOC: ER 09:28 → PCU 16:24
PROVIDERS: Family Medicine; Physician Assistant; Student in an Organized Health Care Education/Training Program; ADMIT Internal Medicine
PROC: 5A09357 Assistance with Respiratory Ventilation, Less than 24 Consecutive Hours, Continuous Positive Airway Pressure (ICD-10-PCS; principal; 2024-06-07)
DX: J18.9 Pneumonia, unspecified organism (principal); G93.41 Metabolic encephalopathy; J96.01 Acute respiratory failure with hypoxia; I48.92 Unspecified atrial flutter; E87.3 Alkalosis; J44.1 Chronic obstructive pulmonary disease with (acute) exacerbation; Z66 Do not resuscitate; I12.9 Hypertensive chronic kidney disease with stage 1 through stage 4 chronic kidney disease, or unspecified chronic kidney disease; E11.22 Type 2 diabetes mellitus with diabetic chronic kidney disease; N18.2 Chronic kidney disease, stage 2 (mild); I48.91 Unspecified atrial fibrillation; F03.A0 Unspecified dementia, mild, without behavioral disturbance, psychotic disturbance, mood disturbance, and anxiety; E78.5 Hyperlipidemia, unspecified; G47.33 Obstructive sleep apnea (adult) (pediatric); E66.9 Obesity, unspecified; E11.42 Type 2 diabetes mellitus with diabetic polyneuropathy; D72.829 Elevated white blood cell count, unspecified; Z87.19 Personal history of other diseases of the digestive system; Z98.890 Other specified postprocedural states; Z79.899 Other long term (current) drug therapy; Z68.33 Body mass index [BMI] 33.0-33.9, adult; Z98.1 Arthrodesis status; Z91.198 Patient's noncompliance with other medical treatment and regimen for other reason; Z79.84 Long term (current) use of oral hypoglycemic drugs
CPT/HCPCS: 36415; 70450; 71045; 71046; 71260; 74230; 80048; 80053; 82803; 82947; 83036; 83605; 83880; 84145; 84484; 85025; 85060; 85610; 87040; 87428-QW; 92526; 92610; 92611; 93005; 93010; 93975; 94640; 94660; 94664; 94760; 94761; 94762; 96374-59; 97110; 97161; 97530; 99285-25; A9270; J0456; J0696; J1120; J1815; J1940; J2543; J2919; J7030; J7040; J7050; Q9967

== ENCOUNTER → 2024-07-18 | Outpatient (CLI) | payer OTHER ==
[~2024-07-18] MED LIST changes: +AMLODIPINE BESYL5 MG PO; +AMOCLA875 PO; +ATORVASTATIN CA20 MG PO; +DONEPEZIL HCL5 M2 PO; +GUAIFENESIN ER600 MG PO; +INSULIN GL100 UNIT/2 SC; +METF500 PO; +Potassium Chlo20 ME1 PO; +TELMISARTAN80 MG PO; +TRADJENTA5 MG PO; +VISBIOME 112.51 EACH PO; +WARF4 PO
[2024-07-18 14:57] LABS: Source, Urine Clean Catch
[2024-07-18 16:48] LABS: Bilirubin, Urine Neg (Neg); Blood, Urine Neg (Neg); Color, Urine Yellow (P-Yellow); Glucose Qualitative, Urine Neg (Neg); Ketones, Urine Neg (Neg); Leukocyte Esterase, Urine Neg (Neg); Nitrite, Urine Neg (Neg); Protein, Urine 2+ (Neg); Specific Gravity, Urine 1.015 (1.003-1.022); Urobilinogen, Urine NORM (Normal)
[2024-07-18 17:03] LABS: Amorphous Light (0-Heavy); Appearance, Urine Hazy (Clear); Bacteria Mod /hpf; Mucus Light (0-Heavy); Red Blood Cells, Urine 0-2 /hpf (0-2); Squamous Epithelial Cells Rare /hpf (Few); White Blood Cells, Urine 0-2 /hpf (0-5)
== END ==
LOC: LAB 14:55 → LAB SHORT 14:55
PROVIDERS: Internal Medicine
DX: N39.0 Urinary tract infection, site not specified (principal); R82.90 Unspecified abnormal findings in urine
CPT/HCPCS: 81001; 87086

== ENCOUNTER → 2024-10-25 | Outpatient (CLI) | payer OTHER ==
[2024-10-25 10:47] LABS: BASOPHILS ABSOLUTE AUTO 0.07 K/mm3 (0.00-0.23); BASOPHILS PERCENT AUTO 1 % (0-2); EOSINOPHILS ABSOLUTE AUTO 0.33 K/mm3 (0.00-0.68); EOSINOPHILS PERCENT AUTO 4 % (0-6); Hematocrit 45.6 % (37.0-53.0); Hemoglobin 15.2 g/dL (13.5-17.5); IMMATURE GRAN ABSOLUTE AUTO 0.03 K/mm3 (0.00-0.10); IMMATURE GRAN PERCENT AUTO 0 % (0-1); LYMPHOCYTES ABSOLUTE AUTO 2.31 K/mm3 (0.84-5.20); LYMPHOCYTES PERCENT AUTO 26 % (21-46); MONOCYTES ABSOLUTE AUTO 0.79 K/mm3 (0.16-1.47); MONOCYTES PERCENT AUTO 9 % (4-13); Mean Corpuscular HGB Conc 33.3 g/dL (31.5-36.5); Mean Corpuscular Volume 87 fL (80-100); NEUTROPHILS ABSOLUTE AUTO 5.41 K/mm3 (1.96-9.15); NEUTROPHILS PERCENT AUTO 61 % (41-73); NRBC ABSOLUTE 0.00 K/mm3 (0.00-0.02); NRBC Auto 0.0 /100 WBC (0.0-0.2); Platelet Count 149 K/mm3 (150-400); RDW Coefficient Variation 14.3 % (11.7-14.2); RDW Standard Deviation 45.1 fL (35.1-46.3)
[2024-10-25 11:20] LABS: Alanine Aminotransfer (ALT/SGP 33.0 U/L (12-78); Albumin, Blood 4.0 g/dL (3.4-5.0); Albumin/Globulin Ratio 1.3 (0.8-1.8); Anion Gap 10.0 mmol/L (3-11); Aspartate Aminotrans (AST/SGOT 27.0 U/L (12-37); Bilirubin, Total 0.7 mg/dL (0.1-1.0); Blood Urea Nitrogen 20.0 mg/dL (8-24); CO2, Blood 27.0 mmol/L (21-32); Calcium, Blood 9.2 mg/dL (8.5-10.1); Chloride, Blood 104.0 mmol/L (98-108); Creatinine, Blood 0.98 mg/dL (0.60-1.20); Globulin, Blood 3.0 g/dL (2.2-4.0); Glucose, Blood 114.0 mg/dL (70-99); Potassium, Blood 3.8 mmol/L (3.5-5.5); Sodium, Blood 137.0 mmol/L (136-145); Total Protein, Blood 7.0 g/dL (6.4-8.2)
== END | disposition home or self-care (01) ==
LOC: LAB 10:32 → LAB SHORT 10:32
PROVIDERS: Family Medicine
DX: R60.0 Localized edema (principal)
CPT/HCPCS: 80053; 83880; 85025

== ENCOUNTER 2025-02-06 10:25 | Day surgery (SDC) | payer OTHER ==
[~2025-02-06] VITALS: Ht 182.9 cm; Wt 103.3 kg
[~2025-02-06 10:25] MED LIST changes: +Balanced Salt Epinephrine Irrigation Solution 500 mL IR SCH; +Moxifloxacin HCL 0.5 MG/0.1 ML 0.4MLSYR LEFTEYE SCH; +NS 500 ML IV ONE; +PHENYLEPHRINE\\TROPICAMIDE\\TETRACAINE OPHTHALMIC DILATING SOLN LEFTEYE PRN; +Povidone-Iodine 450 DROP/30 ML Solution LEFTEYE SCH; +Povidone-Iodine 450 DROP/30 ML Solution ONE; +Tetracaine HCl/Pf 0.5% Opth Soln 4 ml ONE; +Triamcinolone Inj Susp 40 MG / ML 1ML Vial INJ SCH; +Triamcinolone Inj Susp 40 MG / ML 1ML Vial ONE
--- NOTE | 2025-02-06 11:07 | NUR ---
02/06/25 Dominga Watt RN NOTES SOME PUFFINESS UNDER L EYE, STATES "IT'S ALWAYS LIKE THAT"
[2025-02-06] MEDS ORDERED: TRADJENTA5 MG PO (11:13)
[2025-02-06] MEDS ORDERED: FUROSEMIDE40 MG PO (11:13)
[2025-02-06] MEDS ORDERED: XARELTO20 M1 PO (11:13)
[2025-02-06] MEDS ORDERED: NS 500 ML IV ONE (11:27)
[2025-02-06] MEDS ORDERED: FentaNYL Citrate 50 MCG/ML 2 ML Injection ONE (11:41)
[2025-02-06] MEDS ORDERED: Midazolam HCl 1MG / ML 2ML Vial ONE (11:41)
[2025-02-06 12:12] VITALS: BP 168/104
== END 2025-02-06 12:23 | disposition home or self-care (01) ==
LOC: ORSCSDS 10:25
PROVIDERS: Ophthalmology
PROC: 08RK3JZ Replacement of Left Lens with Synthetic Substitute, Percutaneous Approach (ICD-10-PCS; principal; 2025-02-06 12:00)
DX: E11.36 Type 2 diabetes mellitus with diabetic cataract (principal); H25.812 Combined forms of age-related cataract, left eye; H21.81 Floppy iris syndrome; I10 Essential (primary) hypertension; G47.33 Obstructive sleep apnea (adult) (pediatric); E66.9 Obesity, unspecified; Z68.30 Body mass index [BMI] 30.0-30.9, adult; Z79.84 Long term (current) use of oral hypoglycemic drugs; Z79.01 Long term (current) use of anticoagulants; Z79.899 Other long term (current) drug therapy
CPT/HCPCS: 82947; J2003; J2250; J3010; J3301; J7040; V2632

== ENCOUNTER 2025-02-13 10:38 | Day surgery (SDC) | payer OTHER ==
[~2025-02-13] VITALS: Ht 182.9 cm; Wt 101.8 kg
[~2025-02-13 10:38] MED LIST changes: +FUROSEMIDE40 MG PO; -Moxifloxacin HCL 0.5 MG/0.1 ML 0.4MLSYR LEFTEYE SCH; +Moxifloxacin HCL 0.5 MG/0.1 ML 0.4MLSYR RIGHTEYE SCH; -PHENYLEPHRINE\\TROPICAMIDE\\TETRACAINE OPHTHALMIC DILATING SOLN LEFTEYE PRN; +PHENYLEPHRINE\\TROPICAMIDE\\TETRACAINE OPHTHALMIC DILATING SOLN RIGHTEYE PRN; -Povidone-Iodine 450 DROP/30 ML Solution LEFTEYE SCH; +Povidone-Iodine 450 DROP/30 ML Solution RIGHTEYE SCH; +XARELTO20 M1 PO
[2025-02-13] MEDS ORDERED: Tetracaine HCl 0.5% Opth Soln 15 ml ONE (10:43)
[2025-02-13] MEDS ORDERED: NS 500 ML IV ONE (11:02)
--- NOTE | 2025-02-13 11:13 | NUR ---
02/13/25 Jennifer3 Sallie Redding IN AT 1053 DILIA IN AT 1054 CALL LIGHT IN PT'S HANDS.
[2025-02-13] MEDS ORDERED: Midazolam HCl 1MG / ML 2ML Vial ONE (11:24)
[2025-02-13] MEDS ORDERED: Labetalol HCL 5 MG/ML 4ML Injection (Single Dose) ONE (11:37)
--- NOTE | 2025-02-13 12:15 | NUR ---
02/13/25 1215 Giovanny Warner PT INSTRUCTED TO RESUME B/P MEDICATION PERSCRIBED, MONITOR B/P AT HOME, AND FOLLOW UP WITH PCP IF NEEDED REGARDING HYPERTENSION.
[2025-02-13 12:16] VITALS: BP 143/93
== END 2025-02-13 12:10 | disposition home or self-care (01) ==
LOC: ORSCSDS 10:38
PROVIDERS: Ophthalmology
PROC: 08RJ3JZ Replacement of Right Lens with Synthetic Substitute, Percutaneous Approach (ICD-10-PCS; principal; 2025-02-13 12:00)
DX: E11.36 Type 2 diabetes mellitus with diabetic cataract (principal); H25.811 Combined forms of age-related cataract, right eye; Z96.1 Presence of intraocular lens; I10 Essential (primary) hypertension; G47.33 Obstructive sleep apnea (adult) (pediatric); I48.91 Unspecified atrial fibrillation; Z79.01 Long term (current) use of anticoagulants; Z79.4 Long term (current) use of insulin; Z79.84 Long term (current) use of oral hypoglycemic drugs; Z79.899 Other long term (current) drug therapy; Z87.891 Personal history of nicotine dependence
CPT/HCPCS: 82947; J2250; J3301; J7040; V2632